=== PATIENT | female | born 1985 | race African-American/Black ===

== ENCOUNTER 2025-02-10 19:31 | Emergency (ER) | payer MEDICAID ==
[~2025-02-10] VITALS: Ht 172.7 cm; Wt 64.0 kg
[2025-02-10 19:35] VITALS: BP 122/89; PULSE 90; RESP 18; TEMP 37; O2SAT 99
== END 2025-02-10 20:45 | disposition left against medical advice (07) ==
LOC: ER 19:31
DX: F10.129 Alcohol abuse with intoxication, unspecified (principal); Y90.9 Presence of alcohol in blood, level not specified
CPT/HCPCS: 99281

== ENCOUNTER 2025-02-10 21:34 | Emergency (ER) | payer MEDICAID ==
[~2025-02-10] VITALS: Ht 167.6 cm; Wt 70.0 kg
[2025-02-10 21:40] VITALS: O2SAT 97
[2025-02-10 21:47] VITALS: BP 134/95; PULSE 67; RESP 18; TEMP 36.7; O2SAT 100
[2025-02-10 22:17] LABS: BASOPHILS % 1.2 % (0.0-2.0); EOSINOPHILS % 1.1 % (0.0-5.0); HEMATOCRIT. 32.3 % (36.0-48.0); HEMOGLOBIN. 10.2 g/dL (12.0-16.0); LYMPHOCYTES % 42.9 % (20.0-50.0); MEAN PLATELET VOLUME 10.0 fl (7.4-10.4); MONOCYTES % 7.0 % (2.0-8.0); NEUTROPHILS % 47.8 % (40.0-76.0); PLATELET 185 x1000/uL (130-400); RED BLOOD CELL COUNT 3.53 mill/uL (4.2-5.4); RED CELL DISTRIBUTION WIDTH 18.9 % (11.6-14.6)
[2025-02-10 22:32] LABS: CREATININE 0.7 mg/dL (0.6-1.0); UREA NITROGEN BLOOD 5 mg/dL (9-23)
[2025-02-10 22:38] LABS: HCG SCREEN NEGATIVE
[2025-02-11] MEDS ORDERED: ACETAMINOPHEN 325MG TABLET PO ONE (01:00)
== END 2025-02-11 01:10 | disposition left against medical advice (07) ==
LOC: ER 21:34
DX: R07.89 Other chest pain (principal); Y04.8XXA Assault by other bodily force, initial encounter; Y93.89 Activity, other specified; Y92.89 Other specified places as the place of occurrence of the external cause; Y99.8 Other external cause status
CPT/HCPCS: 36415; 71045; 80048; 84703; 85025; 99284

== ENCOUNTER 2025-02-19 14:24 | Emergency (ER) | payer MEDICAID ==
[~2025-02-19] VITALS: Ht 167.6 cm; Wt 73.0 kg
[2025-02-19 14:32] VITALS: BP 155/82; PULSE 120; RESP 18; TEMP 36.8; O2SAT 98
[2025-02-19 16:05] LABS: BASOPHILS % 1.1 % (0.0-2.0); EOSINOPHILS % 1.5 % (0.0-5.0); HEMATOCRIT. 28.9 % (36.0-48.0); HEMOGLOBIN. 9.2 g/dL (12.0-16.0); LYMPHOCYTES % 25.9 % (20.0-50.0); MEAN PLATELET VOLUME 9.2 fl (7.4-10.4); MONOCYTES % 9.9 % (2.0-8.0); NEUTROPHILS % 61.6 % (40.0-76.0); PLATELET 255 x1000/uL (130-400); RED BLOOD CELL COUNT 3.25 mill/uL (4.2-5.4); RED CELL DISTRIBUTION WIDTH 19.7 % (11.6-14.6)
[2025-02-19 16:29] LABS: CREATININE 0.7 mg/dL (0.6-1.0); UREA NITROGEN BLOOD 10 mg/dL (9-23)
[2025-02-19 16:31] LABS: ASPARTATE AMINOTRANSFERASE 49 IU/L (<34)
[2025-02-19 16:32] LABS: BILIRUBIN DIRECT 0.2 mg/dL (<=3.0); BILIRUBIN TOTAL 0.5 mg/dL (0.1-1.0); PROTEIN TOTAL 7.7 g/dL (6.0-8.3)
[2025-02-19 16:35] LABS: HCG SCREEN NEGATIVE
[2025-02-19 16:54] LABS: CLARITY URINE CLOUDY (CLEAR); COLOR URINE YELLOW (YELLOW); GLUCOSE URINE NEGATIVE (NEGATIVE); KETONES URINE NEGATIVE (NEGATIVE); LEUKOCYTE ESTERASE URINE NEGATIVE (NEGATIVE); NITRITE URINE NEGATIVE (NEGATIVE); OCCULT BLOOD URINE 2+ (NEGATIVE); PH URINE 5.5 (4.5-8.0); PROTEIN URINE NEGATIVE (NEGATIVE); SPECIFIC GRAVITY URINE 1.012 (1.005-1.030); UROBILINOGEN URINE 1.0 E.U./dL (0.2-1.0)
[2025-02-19 17:06] LABS: *AMPHETAMINES SCREEN URINE NEGATIVE (NEGATIVE); *BARBITURATES SCREEN URINE NEGATIVE (NEGATIVE); *BENZODIAZEPINES SCREEN URINE NEGATIVE (NEGATIVE); *COCAINE SCREEN URINE NEGATIVE (NEGATIVE); CANNABINOID URINE SCREEN PRESUMPTIVE POSITIVE (NEGATIVE); ECSTASY MDMA SCREEN URINE NEGATIVE (NEGATIVE); METHADONE URINE SCREEN NEGATIVE (NEGATIVE); OPIATES URINE SCREEN NEGATIVE (NEGATIVE); PHENCYCLIDINE URINE SCREEN NEGATIVE (NEGATIVE)
[2025-02-19 17:09] LABS: BACTERIA URINE 1+; RBC URINE 0-2 /hpf (0-2); SQUAMOUS EPITHELIAL CELL URINE 2+ /lpf (RARE/1+); WBC URINE 0-2 /hpf (0-2)
[2025-02-21 19:06] LABS: CHLAMYDIA TRACHOMATIS NAA Negative (Negative); NEISSERIA GONORRHOEAE NAA Negative (Negative)
== END 2025-02-19 15:57 | disposition home or self-care (01) ==
LOC: ER 14:24
DX: F10.129 Alcohol abuse with intoxication, unspecified (principal); D64.9 Anemia, unspecified; Z98.890 Other specified postprocedural states; Z79.899 Other long term (current) drug therapy; Z20.822 Contact with and (suspected) exposure to COVID-19; Y90.9 Presence of alcohol in blood, level not specified
CPT/HCPCS: 36415; 80048; 80076; 80305; 80307; 80320; 80329; 81003; 83735; 84703; 85025; 86592; 87426; 87491; 87591; 99283; G0480

== ENCOUNTER 2025-02-20 12:20 | Emergency (ER) | payer MEDICAID ==
[~2025-02-20] VITALS: Ht 162.6 cm; Wt 64.0 kg
[2025-02-20 12:23] VITALS: BP 150/100; PULSE 100; RESP 16; TEMP 36.9; O2SAT 98
== END 2025-02-20 13:25 | disposition left against medical advice (07) ==
LOC: ER 12:20
DX: R07.89 Other chest pain (principal); Z79.899 Other long term (current) drug therapy
CPT/HCPCS: 82962; 99281